=== PATIENT | female | born 1965 | race Caucasian/White ===

== ENCOUNTER 2018-03-19 16:34 | Observation (INO) ==
[2018-03-19] MEDS ORDERED: Isovue-370 500 ML INFUS..BTL IV ONE (16:46)
[2018-03-19 17:20] LABS: Basophils # 0.1 K/mcL (0.0-0.2); Basophils % 0.8 %; Eosinophils # 0.1 K/mcL (0.0-0.6); Eosinophils % 1.9 %; Hematocrit 43.9 % (35.3-44.9); Hemoglobin 14.5 g/dL (11.5-15.4); Immature Granulocytes % 0.4 % (0-4); Lymphocytes # 1.1 K/mcL (0.6-4.6); Lymphocytes % 14.8 %; Mean Corpuscular Hemoglobin 27.1 pg (28.0-33.3); Mean Corpuscular Volume 82.1 fL (83.0-100.0); Mean Platelet Volume 9.6 fL (9.4-12.4); Monocytes # 0.4 K/mcL (0.0-1.3); Neutrophils # 5.6 K/mcL (1.6-8.9); Platelet Count 257 K/mcL (140-400); Red Blood Count 5.35 M/mcL (3.82-4.97); Red Cell Distribution Width 13.7 % (11.5-14.5); Segmented Neutrophils % 76.1 %
[2018-03-19 17:31] LABS: Prothrombin Time 10.9 Seconds (9.4-12.1)
[2018-03-19 17:33] LABS: Activated Partial Thrombo Time 31.9 Seconds (26.0-36.0)
--- NOTE | 2018-03-19 17:35 | Emergency Department Note ---
Addendum entered and electronically signed by Lux Graves DO 03/19/18 19:01: CT scan of the head as well as a CT is were negative. The patient was evaluated by [facility]. The did not recommend any acute intervention. The did recommend patient have MRI to evaluate for further evidence of stroke. I called and spoke with the admitting hospitalist Dr. Peters and he is except the patient to their service. Patient be admitted hospital for further evaluation and management. Original Note: Disposition Clinical Impression: TIA (transient ischemic attack) Disposition: Admitted As Inpatient Referrals: Brittaney Bassett [Primary Care Provider] - Forms: ED Satisfaction Letter General Adult HPI - General Chief complaint: ED Chest Pain Stated complaint: CP Time Seen by Provider: 03/19/18 16:45 Source: patient Mode of arrival: ambulatory Limitations: no limitations Nursing Notes Reviewed: Yes Vital Signs Reviewed: Yes - History of Present Illness HPI Narrative: Patient is a 52-year-old female that presents emergency Department with complaint of left arm heaviness as well as reports of fullness to the side of her face. Patient states this began around 1500 this afternoon. Patient states that she has never had any history of stroke. Patient also reports that she had some burning sensation in her left upper chest and shoulder. Patient states t hat she is never had any cardiac issues. Patient states that she felt as if her left hand was starting to drop and became painful. Patient states that she did not have any issues with speech. Pain Scale: 0 - Related Data Home Medications Medication Instructions Recorded Confirmed Aspirin [Adult Low Dose Aspirin EC] 81 mg PO DAILY 03/31/15 04/27/17 Levothyroxine [Synthroid] 100 mcg PO 0630 03/31/15 04/27/17 Loratadine [Claritin] 10 mg PO DAILY 03/31/15 04/27/17 Metformin HCl [Glucophage Xr] 1,000 mg PO BID 03/31/15 04/27/17 Metoprolol [Lopressor] 50 mg PO BID 03/31/15 04/27/17 Omeprazole [PriLOSEC] 40 mg PO DAILY 03/31/15 04/27/17 Pravastatin Sodium 20 mg PO DAILY 03/31/15 04/27/17 Triamterene/HCTZ 37.5/25mg 1 each PO DAILY 03/31/15 04/27/17 [Dyazide] Acetaminophen [Tylenol Arthritis] 650 mg PO Q6H 04/27/17 04/27/17 Celecoxib [Celebrex] 200 mg PO DAILY 04/27/17 04/27/17 Allergies Allergy/AdvReac Type Severity Reaction Status Date / Time moxifloxacin [From Avelox] Allergy makes her Verified 03/19/18 16:41 feel funny dextromethorphan AdvReac See Verified 03/19/18 16:41 [From Capmist DM] Comments guaifenesin [From Capmist DM] AdvReac See Verified 03/19/18 16:41 Comments pseudoephedrine AdvReac See Verified 03/19/18 16:41 [From Capmist DM] Comments All systems ED: reviewed and negative except as stated. 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 Absent: respiratory distress, wheezes - Cardiovascular Cardiovascular exam: Present: regular rate, normal rhythm, normal heart sounds, +S1, +S2 - Abdominal Exam Abdominal exam: Present: soft, Non-Tender, normal bowel sounds - Neurological Exam Neurological exam: Present: alert, oriented X3 - Expanded Neurological Exam Speech: Present: fluid speech Cranial nerves: EOM function (II, III, IV, ): Normal, facial sensation (V): Normal, facial palsy (VII): Normal, gag reflex (IX): Normal, spinal accessory function (XI): Normal, tongue deviation (XII): Normal Cerebellar function: finger to nose: Normal, heel to gonzalez: Normal Motor strength - LUE: 5/5 Motor strength - RUE: 5/5 Motor strength - LLE: 5/5 Motor strength - RLE: 5/5 Upper motor neuron exam: pronator drift: Absent bilaterally Sensory exam upper extremity: light touch: Normal Sensory exam lower extremity: light touch: Normal Coma Scale Eye Opening: Spontaneous Coma Scale Motor Response: Obeys Commands Coma Scale Verbal Response: Oriented Coma Scale Total: 15 - Psychiatric Psychiatric exam: Present: normal affect, normal mood - Skin Skin exam: Present: warm, dry, intact Course Vital Signs Temperature 97.9 F 03/19/18 16:39 Pulse Rate 92 03/19/18 16:39 Respiratory Rate 18 03/19/18 16:39 Blood Pressure 179/109 03/19/18 16:39 O2 Sat by Pulse Oximetry 100 03/19/18 16:39 Temperature 97.9 F 03/19/18 16:57 Pulse Rate 97 03/19/18 17:45 Respiratory Rate 15 03/19/18 17:34 Blood Pressure 139/94 03/19/18 17:45 O2 Sat by Pulse Oximetry 100 03/19/18 17:45 Oxygen Delivery Oxygen Delivery Room Air Medical Decision Making - MDM Narrative Medical decision making narrative: Due the patient having reports of left arm heaviness and fullness's side of her face we did call a stroke alert. This was to expedite the workup of the patient's CT scan and laboratory testing. - Medical Records Medical records reviewed: Yes I reviewed the patient's medical records. - Lab Data Lab results reviewed: Yes I reviewed the patient's lab results. Result diagrams: 03/19/18 17:00 03/19/18 17:00 Lab Results 03/19/18 03/19/18 03/19/18 Range/Units 17:00 17:00 17:00 WBC 7.4 (4.3-11.1) K/mcL RBC 5.35 H (3.82-4.97) M/mcL Hgb 14.5 (11.5-15.4) g/dL Hct 43.9 (35.3-44.9) % MCV 82.1 L (83.0-100.0) fL MCH 27.1 L (28.0-33.3) pg MCHC 33.0 (31.6-35.5) g/dL RDW 13.7 (11.5-14.5) % Plt Count 257 (140-400) K/mcL MPV 9.6 (9.4-12.4) fL Immature Gran % 0.4 (0-4) % Seg Neutrophils % 76.1 % Lymphocytes % 14.8 % Monocytes % 6.0 % Eosinophils % 1.9 % Basophils % 0.8 % Neutrophils # 5.6 (1.6-8.9) K/mcL Lymphocytes # 1.1 (0.6-4.6) K/mcL Monocytes # 0.4 (0.0-1.3) K/mcL Eosinophils # 0.1 (0.0-0.6) K/mcL Basophils # 0.1 (0.0-0.2) K/mcL PT 10.9 (9.4-12.1) Seconds INR 1.0 APTT 31.9 (26.0-36.0) Seconds Sodium 138 (136-145) mEq/L Potassium 3.2 L (3.5-5.1) mEq/L Chloride 98 (98-107) mEq/L Carbon Dioxide 29 (23-29) mEq/L BUN 15 (6-20) mg/dL Creatinine 1.17 (0.60-1.20) mg/dL Est GFR ( Amer) 59 L (> 60) Est GFR (Non-Af Amer) 48 L (> 60) BUN/Creatinine Ratio 13 (6-26) Glucose 228 H (70-105) mg/dL POC Glucose (70-99) mg/dL Calculated Osmolality 294 (280-300) Calcium 9.6 (8.6-10.3) mg/dL Troponin I < 0.03 (< 0.04) ng/mL 03/19/18 Range/Units 17:03 WBC (4.3-11.1) K/mcL RBC (3.82-4.97) M/mcL Hgb (11.5-15.4) g/dL Hct (35.3-44.9) % MCV (83.0-100.0) fL MCH (28.0-33.3) pg MCHC (31.6-35.5) g/dL RDW (11.5-14.5) % Plt Count (140-400) K/mcL MPV (9.4-12.4) fL Immature Gran % (0-4) % Seg Neutrophils % % Lymphocytes % % Monocytes % % Eosinophils % % Basophils % % Neutrophils # (1.6-8.9) K/mcL Lymphocytes # (0.6-4.6) K/mcL Monocytes # (0.0-1.3) K/mcL Eosinophils # (0.0-0.6) K/mcL Basophils # (0.0-0.2) K/mcL PT (9.4-12.1) Seconds INR APTT (26.0-36.0) Seconds Sodium (136-145) mEq/L Potassium (3.5-5.1) mEq/L Chloride (98-107) mEq/L Carbon Dioxide (23-29) mEq/L BUN (6-20) mg/dL Creatinine (0.60-1.20) mg/dL Est GFR ( Amer) (> 60) Est GFR (Non-Af Amer) (> 60) BUN/Creatinine Ratio (6-26) Glucose (70-105) mg/dL POC Glucose 204 H (70-99) mg/dL Calculated Osmolality (280-300) Calcium (8.6-10.3) mg/dL Troponin I (< 0.04) ng/mL - Radiology Data Radiology results reviewed: Yes I reviewed the patient's radiology results. - EKG Data EKG #1 EKG attestation: Yes I reviewed and interpreted this EKG. EKG results narrative: EKG shows a sinus rhythm rate 83 bpm, MN interval 159, QRS duration of 94, QTc of 476. There is no evidence of STEMI and EKG. This is compared to previous EKG on 03/21/16. NIH Stroke Scale - Level of Consciousness LOC: Alert - LOC Questions LOC Questions: Answers both correctly - LOC Commands LOC Commands: Performs both correctly - Best Gaze Best Gaze: Normal - Visual Visual: No visual loss - Facial Palsy Facial Palsy: Normal - Motor Arms Motor Arm-Left: No drift for 10 seconds Motor Arm-Right: No drift for 10 seconds - Motor Legs Motor Leg-Left: No drift for 5 seconds Motor Leg-Right: No drift for 5 seconds - Limb Ataxia Limb Ataxia: Absent of affected limb too weak to perform exam - Sensory Sensory: Normal - Best Language Best Language: No aphasia - Dysarthria Dysarthria: Normal - Extinction and Inattention Extinction and Inattention: Normal - NIHSS Total Score NIHSS Total Score: 0
[2018-03-19 17:36] LABS: BUN/Creatinine Ratio 13 (6-26); Blood Urea Nitrogen 15 mg/dL (6-20); Calcium 9.6 mg/dL (8.6-10.3); Carbon Dioxide 29 mEq/L (23-29); Chloride 98 mEq/L (98-107); Glucose 228 mg/dL (70-105); Osmolality,Calculated 294 (280-300); Potassium 3.2 mEq/L (3.5-5.1); Sodium 138 mEq/L (136-145); eGFR For Non-African Americans 48 (> 60)
[2018-03-19 17:37] LABS: Troponin I < 0.03 ng/mL (< 0.04)
[2018-03-19] MEDS ORDERED: Aspirin 325 MG TABLET PO ONE (18:01)
--- NOTE | 2018-03-19 18:01 | Emergency Department Note ---
Disposition Clinical Impression: TIA (transient ischemic attack) Disposition: Admitted As Inpatient Referrals: Brittaney Bassett [Primary Care Provider] - Forms: ED Satisfaction Letter Chest Pain HPI - General Chief Complaint: ED Chest Pain Stated Complaint: CP Time Seen by Provider: 03/19/18 16:45 Source: patient Mode of arrival: ambulatory Limitations: no limitations - History of Present Illness Severity scale (1-10): 0 - Related Data Home Medications Medication Instructions Recorded Confirmed Aspirin [Adult Low Dose Aspirin EC] 81 mg PO DAILY 03/31/15 04/27/17 Levothyroxine [Synthroid] 100 mcg PO 0630 03/31/15 04/27/17 Loratadine [Claritin] 10 mg PO DAILY 03/31/15 04/27/17 Metformin HCl [Glucophage Xr] 1,000 mg PO BID 03/31/15 04/27/17 Metoprolol [Lopressor] 50 mg PO BID 03/31/15 04/27/17 Omeprazole [PriLOSEC] 40 mg PO DAILY 03/31/15 04/27/17 Pravastatin Sodium 20 mg PO DAILY 03/31/15 04/27/17 Triamterene/HCTZ 37.5/25mg 1 each PO DAILY 03/31/15 04/27/17 [Dyazide] Acetaminophen [Tylenol Arthritis] 650 mg PO Q6H 04/27/17 04/27/17 Celecoxib [Celebrex] 200 mg PO DAILY 04/27/17 04/27/17 Allergies Allergy/AdvReac Type Severity Reaction Status Date / Time moxifloxacin [From Avelox] Allergy makes her Verified 03/19/18 16:41 feel funny dextromethorphan AdvReac See Verified 03/19/18 16:41 [From Capmist DM] Comments guaifenesin [From Capmist DM] AdvReac See Verified 03/19/18 16:41 Comments pseudoephedrine AdvReac See Verified 03/19/18 16:41 [From Capmist DM] Comments Constitutional: Denies: fever Cardiovascular: Reports: chest pain (burning ) Respiratory: Denies: dyspnea Gastrointestinal: Denies: abdominal pain, nausea, vomiting Musculoskeletal: Reports: other (Left arm pain ) Neurological: Reports: other (Heaviness of the left arm area) Chest Pain PMH - Past Medical History Medical history: Reports: arthritis, diabetes, hyperlipidemia, hypertension, thyroid disease Surgical history: Reports: cholecystectomy, hysterectomy 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 - Social History Smoking Status: Former smoker Alcohol use: Reports: none, occasionally Drug use: Reports: none Physical Exam - General Limitations: no limitations General appearance: alert, in no apparent distress Course Vital Signs Temperature 97.9 F 03/19/18 16:39 Pulse Rate 92 03/19/18 16:39 Respiratory Rate 18 03/19/18 16:39 Blood Pressure 179/109 03/19/18 16:39 O2 Sat by Pulse Oximetry 100 03/19/18 16:39 Temperature 97.9 F 03/19/18 16:57 Pulse Rate 97 03/19/18 17:45 Respiratory Rate 15 03/19/18 17:34 Blood Pressure 139/94 03/19/18 17:45 O2 Sat by Pulse Oximetry 100 03/19/18 17:45 Oxygen Delivery Oxygen Delivery Room Air Chest Pain - Lab Data Result diagrams: 03/19/18 17:00 03/19/18 17:00 Lab Results 03/19/18 03/19/18 03/19/18 Range/Units 17:00 17:00 17:00 WBC 7.4 (4.3-11.1) K/mcL RBC 5.35 H (3.82-4.97) M/mcL Hgb 14.5 (11.5-15.4) g/dL Hct 43.9 (35.3-44.9) % MCV 82.1 L (83.0-100.0) fL MCH 27.1 L (28.0-33.3) pg MCHC 33.0 (31.6-35.5) g/dL RDW 13.7 (11.5-14.5) % Plt Count 257 (140-400) K/mcL MPV 9.6 (9.4-12.4) fL Immature Gran % 0.4 (0-4) % Seg Neutrophils % 76.1 % Lymphocytes % 14.8 % Monocytes % 6.0 % Eosinophils % 1.9 % Basophils % 0.8 % Neutrophils # 5.6 (1.6-8.9) K/mcL Lymphocytes # 1.1 (0.6-4.6) K/mcL Monocytes # 0.4 (0.0-1.3) K/mcL Eosinophils # 0.1 (0.0-0.6) K/mcL Basophils # 0.1 (0.0-0.2) K/mcL PT 10.9 (9.4-12.1) Seconds INR 1.0 APTT 31.9 (26.0-36.0) Seconds Sodium 138 (136-145) mEq/L Potassium 3.2 L (3.5-5.1) mEq/L Chloride 98 (98-107) mEq/L Carbon Dioxide 29 (23-29) mEq/L BUN 15 (6-20) mg/dL Creatinine 1.17 (0.60-1.20) mg/dL Est GFR ( Amer) 59 L (> 60) Est GFR (Non-Af Amer) 48 L (> 60) BUN/Creatinine Ratio 13 (6-26) Glucose 228 H (70-105) mg/dL POC Glucose (70-99) mg/dL Calculated Osmolality 294 (280-300) Calcium 9.6 (8.6-10.3) mg/dL Troponin I < 0.03 (< 0.04) ng/mL 03/19/18 Range/Units 17:03 WBC (4.3-11.1) K/mcL RBC (3.82-4.97) M/mcL Hgb (11.5-15.4) g/dL Hct (35.3-44.9) % MCV (83.0-100.0) fL MCH (28.0-33.3) pg MCHC (31.6-35.5) g/dL RDW (11.5-14.5) % Plt Count (140-400) K/mcL MPV (9.4-12.4) fL Immature Gran % (0-4) % Seg Neutrophils % % Lymphocytes % % Monocytes % % Eosinophils % % Basophils % % Neutrophils # (1.6-8.9) K/mcL Lymphocytes # (0.6-4.6) K/mcL Monocytes # (0.0-1.3) K/mcL Eosinophils # (0.0-0.6) K/mcL Basophils # (0.0-0.2) K/mcL PT (9.4-12.1) Seconds INR APTT (26.0-36.0) Seconds Sodium (136-145) mEq/L Potassium (3.5-5.1) mEq/L Chloride (98-107) mEq/L Carbon Dioxide (23-29) mEq/L BUN (6-20) mg/dL Creatinine (0.60-1.20) mg/dL Est GFR ( Amer) (> 60) Est GFR (Non-Af Amer) (> 60) BUN/Creatinine Ratio (6-26) Glucose (70-105) mg/dL POC Glucose 204 H (70-99) mg/dL Calculated Osmolality (280-300) Calcium (8.6-10.3) mg/dL Troponin I (< 0.04) ng/mL Attestation Statement - Attestation Attestation: I examined this patient and my medical decision-making was reviewed with the Resident Physician. I agree with the documented findings, disposition and treatment plan as described except to the extent set forth below. 52 year old fmale presnets to the eD with complaints of left arm paresthesias tht started a 1500 today and has not resolved with senseation defeciets and no other neuro defecits. [facility] STROKE alert was called and [facility] recommend ad mission to the ED for MRI. aspirin thearpy
[2018-03-19] MEDS ORDERED: Potassium Chloride Elixir 20 MEQ/15 ML UDC PO ONE (20:25)
[2018-03-19] MEDS ORDERED: Dextrose Gel 15 GM/37.5 ML TUBE PO PRN ×2 (20:27)
[2018-03-19] MEDS ORDERED: D5% in Water 1,000 ML IVC PRN (20:34)
[2018-03-19] MEDS ORDERED: *HR* Dextrose 50 % in Water (Syg) 50 ML SYRINGE IVP PRN (20:34)
[2018-03-19] MEDS ORDERED: Insulin LISPRO 300 UNITS/3 ML VIAL SQ SCH (21:00)
[2018-03-19] MEDS ORDERED: Acetaminophen 325 MG TABLET PO SCH (21:00)
[2018-03-19] MEDS: *HR* Heparin 5,000 UNIT/ML VIAL SQ SCH (22:27)
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
[2018-03-20 05:14] LABS: BUN/Creatinine Ratio 16 (6-26); Blood Urea Nitrogen 15 mg/dL (6-20); Calcium 9.2 mg/dL (8.6-10.3); Carbon Dioxide 27 mEq/L (23-29); Chloride 103 mEq/L (98-107); Chol/HDL Ratio 3.8 (0-4.9); Cholesterol 147 mg/dL (< 200); Glucose 164 mg/dL (70-105); HDL Cholesterol 39 mg/dL (40-59); LDL Cholesterol,Calculated 70 mg/dL (0-99); Magnesium 2.2 mg/dL (1.6-2.6); Osmolality,Calculated 290 (280-300); Potassium 3.5 mEq/L (3.5-5.1); Sodium 138 mEq/L (136-145); Triglycerides 192 mg/dL (< 150); eGFR For Non-African Americans > 60 (> 60)
[2018-03-20] MEDS: *HR* Heparin 5,000 UNIT/ML VIAL SQ SCH ×2 (06:06→15:19)
[2018-03-20] MEDS: Insulin LISPRO 300 UNITS/3 ML VIAL SQ SCH ×2 (08:34→12:29)
[2018-03-20] MEDS ORDERED: Celecoxib 200 MG CAPSULE PO SCH (09:00)
[2018-03-20] MEDS ORDERED: Aspirin Enteric Coated 81 MG Tablet PO SCH (09:00)
[2018-03-20] MEDS ORDERED: Loratadine 10 MG TABLET PO SCH (09:00)
[2018-03-20 10:30] LABS: Estimated Average Glucose 163 mg/dl; Hemoglobin A1C 7.3 %
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
[2018-03-20 14:55] VITALS: BP 114/76
--- NOTE | 2018-03-22 17:43 | Electrocardiograph Report ---
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
== END 2018-03-20 16:30 | disposition home or self-care (01) ==
LOC: 3BNU 16:34 → EMEROOARM 16:34 → 3BNU 20:14
PROVIDERS: ADMIT Student in an Organized Health Care Education/Training Program; ATTEND Student in an Organized Health Care Education/Training Program